=== PATIENT | male | born 1980 | race African-American/Black ===

== ENCOUNTER 2021-10-10 17:13 | Emergency (ER) | payer SELFPAY ==
[~2021-10-10] VITALS: Ht 170.2 cm; Wt 158.8 kg
[2021-10-10] MEDS ORDERED: Morphine 4mg INJECTION 4 MG/ML INJ IM ONE (18:45)
[2021-10-10] MEDS ORDERED: ONDANSETRON HCL 4 MG ORAL DISINTEGRATING TAB PO ONE (18:45)
[2021-10-10] MEDS ORDERED: VENTOLIN HFA18 GM INH (18:56)
[2021-10-10] MEDS ORDERED: AZITHROMYCIN250 MG PO (18:56)
[2021-10-10] MEDS ORDERED: ONDANSETRON HCL 4 MG ORAL DISINTEGRATING TAB ONE (18:56)
[2021-10-10] MEDS ORDERED: PREDNISONE20 MG PO (18:56)
[2021-10-10] MEDS ORDERED: Morphine 4mg INJECTION 4 MG/ML INJ ONE (18:57)
== END 2021-10-10 19:38 | disposition home or self-care (01) ==
LOC: ER 17:18
DX: R05.9 Cough, unspecified (principal); J40 Bronchitis, not specified as acute or chronic; E66.01 Morbid (severe) obesity due to excess calories; Z20.822 Contact with and (suspected) exposure to COVID-19
CPT/HCPCS: 99283; J2270; Q0162; U0002